=== PATIENT | male | born 1970 | race Caucasian/White ===

== ENCOUNTER 2017-12-11 18:06 | Emergency (ER) | payer SELFPAY ==
[2017-12-11 18:12] VITALS: RESP 16
[2017-12-11 20:55] LABS: BASO % 0.6 % (0.0-2.0); EOS # 0.2 K/uL (0.0-0.7); EOS % 3.2 % (0.0-4.0); HEMOGLOBIN 14.4 g/dL (12.0-18.0); LYMPH # 2.2 K/uL (1.0-4.3); LYMPH % 29.8 % (20.0-40.0); MEAN CELL VOLUME 85.6 fl (80.0-94.0); MEAN CORPUSCULAR HEMOGLOBIN 29.1 pg (27.0-31.0); MONO # 0.8 K/uL (0.0-0.8); MONO % 10.4 % (0.0-10.0); NEUT # 4.1 K/uL (1.8-7.0); NRBC % 0.2 % (0.0-0.0); RBC 4.93 Mil/uL (4.40-5.90); RED CELL DISTRIBUTION WIDTH 15.2 % (11.5-14.5); WHITE BLOOD COUNT 7.3 K/uL (4.8-10.8)
--- NOTE | 2017-12-11 21:00 | ED PDOC ---
HPI: Psych/Substance Abuse Time Seen by Provider: 12/11/17 19:00 Chief Complaint (Nursing): Substance Abuse Chief Complaint (Provider): Substance Abuse History Per: Patient History/Exam Limitations: no limitations Onset/Duration Of Symptoms: Other (prior to arrival) Current Symptoms Are (Timing): Still Present Additional Complaint(s): 47 y/o male with no significant past medical history, who was brought to the ED by EMS due to substance abuse, [place]. Patient admits to using multiple bags of heroin today. Denies any pain or medical complaints at this time. PMD: None provided Past Medical History Reviewed: Historical Data, Nursing Documentation, Vital Signs Vital Signs: Last Vital Signs Temp 99.1 F 12/11/17 18:09 Pulse 106 H 12/11/17 18:09 Resp 16 12/11/17 18:09 BP 151/102 H 12/11/17 18:09 Pulse Ox 96 12/11/17 18:09 - Medical History PMH: No Chronic Diseases - Surgical History Surgical History: No Surg Hx - Family History Family History: States: Unknown Family Hx - Social History Current smoker - smoking cessation education provided: Yes SMOKER/PACKS PER DAY:: 1 Alcohol: None Drugs: Opiates (heroin) - Allergies Allergies/Adverse Reactions: Allergies Allergy/AdvReac Type Severity Reaction Status Date / Time No Known Allergies Allergy Verified 12/11/17 18:09 Review of Systems ROS Statement: Except As Marked, All Systems Reviewed And Found Negative Physical Exam - Reviewed Nursing Documentation Reviewed: Yes Vital Signs Reviewed: Yes - Physical Exam Appears: Positive for: Non-toxic, No Acute Distress Head Exam: Positive for: ATRAUMATIC, NORMAL INSPECTION, NORMOCEPHALIC Skin: Positive for: Normal Color, Warm, Dry Cardiovascular/Chest: Positive for: Regular Rate, Rhythm. Negative for: Murmur Respiratory: Positive for: Normal Breath Sounds. Negative for: Respiratory Distress Gastrointestinal/Abdominal: Positive for: Normal Exam, Soft. Negative for: Tenderness Extremity: Positive for: Normal ROM Neurologic/Psych: Positive for: Oriented. Negative for: Alert (somnolent, but arousable; coherent when speaking) - Laboratory Results Result Diagrams: 12/11/17 20:49 12/11/17 20:49 - ECG O2 Sat by Pulse Oximetry: 96 (RA) Pulse Ox Interpretation: Normal Medical Decision Making Medical Decision Makin:28 Plan: drug use --Monitor for sobriety --Acetaminophen --Alcohol serum --BMP --Drug screen --Salicylate --CBC --Reevaluation 0230 Labs reviewed: no clinically significant abnormalities. Patient is stable for discharge home. pt ambulating w stable gait, vitals stable. pt awake and alert. Scribe Attestation: Documented by Buddy Tirado, acting as a scribe for Elizabeth Tamez MD. Provider Scribe Attestation: All medical record entries made by the Scribe were at my direction and personally dictated by me. I have reviewed the chart and agree that the record accurately reflects my personal performance of the history, physical exam, medical decision making, and the department course for this patient. I have also personally directed, reviewed, and agree with the discharge instructions and disposition. Disposition - Clinical Impression Clinical Impression: Heroin abuse - Patient ED Disposition Is Patient to be Admitted: No Counseled Patient/Family Regarding: Studies Performed, Diagnosis, Need For Followup - Disposition Referrals: [facility] [Outside] [facility] [Outside] Disposition: Routine/Home Disposition Time: 23:00 Condition: IMPROVED Additional Instructions: follow up w your primary doctor in 1-2 days return to ED with any worsening or concerning symptoms Forms: [employer] (Turkish)
[2017-12-11 21:04] LABS: BLOOD UREA NITROGEN 13 mg/dl (9-20); CALCIUM 9.2 mg/dL (8.4-10.2); GFR AFRICAN-AMERICAN > 60; GFR NON-AFRICAN AMERICAN > 60
[2017-12-11 21:05] LABS: ACETAMINOPHEN < 10.0 ug/ml (10.0-30.0); SALICYLATE < 1.0 mg/dl
[2017-12-12 03:12] VITALS: BP 135/82; TEMP 98
[2017-12-12 03:38] VITALS: O2SAT 96
[2017-12-12 04:43] VITALS: PULSE 71
== END 2017-12-12 03:40 | disposition home or self-care (01) ==
LOC: H.ER 18:06
DX: F11.10 Opioid abuse, uncomplicated (principal); F17.210 Nicotine dependence, cigarettes, uncomplicated
CPT/HCPCS: 80048; 85025; 99284; G0480